=== PATIENT | male | born 1985 | race Caucasian/White ===

== ENCOUNTER 2019-02-11 08:08 | Inpatient (IN) | payer MEDICAID, OTHER ==
[~2019-02-11] VITALS: Ht 170.2 cm; Wt 90.7 kg
[~2019-02-11 08:08] MED LIST: PHEN100C3 PO
[2019-02-11 08:13] VITALS: BP 168/94
--- NOTE | 2019-02-11 08:17 | NUR ---
Patient ambulated to bed 9. RN evaluating patient at bedside.
--- NOTE | 2019-02-11 08:35 | NUR ---
C/O LLQ ABD PAIN 8/10 AND SHARP X1 DAY. PT ALSO REPORTS DYSURIA AND N/V X1 DAY WELL. PT STATES HE IS A [employer] AND HE THINKS MAYBE HE PULLED SOMETHING AT WORK. PT DENIES FEVER/DIARRHEA. LBM 02/10/19 & REGULAR. BOWEL SOUNDS PRESENT X4, ABD ROUND SOFT AND TENDER TO PALPATION ON LLQ. PT IN BED, SIDE RAIL UP X1, BED IN LOW POSITION.
--- NOTE | 2019-02-11 08:42 | NUR ---
DR. ANDERSON AT BEDSIDE
[2019-02-11] MEDS ORDERED: KETOROLAC 30 MG/ML VIAL IVP ONE (08:45)
[2019-02-11] MEDS ORDERED: NACL 0.9% 1,000 ML IV ONE (08:45)
--- NOTE | 2019-02-11 08:50 | NUR ---
pt left to CT
--- NOTE | 2019-02-11 09:10 | NUR ---
20 G INSERTED INTO PTS R AC, LABS DRAWN BEDSIDE AND PLACED FOR LAB PICKUP
[2019-02-11 09:51] LABS: BASOPHILS % (AUTO) 0.2 % (0.0-2.0); HEMATOCRIT 41.4 % (36-52); LYMPHOCYTES # (AUTO) 0.7 K/uL (2.0-11.5); LYMPHOCYTES % (AUTO) 5.9 % (20.5-51.1); MEAN CORPUSCULAR HEMOGLOBIN 31 pg (27-31); MEAN CORPUSCULAR HGB CONC 34 g/dL (33-37); MEAN CORPUSCULAR VOLUME 92.3 fL (80-94); MONOCYTES # (AUTO) 0.5 K/uL (0.8-1.0); MONOCYTES % (AUTO) 4.9 % (1.7-9.3); NEUTROPHILS # (AUTO) 9.8 K/uL (1.8-7.7); PLATELET COUNT (AUTO) 243 K/uL (140-450); RED BLOOD CELL COUNT(AUTO) 4.49 MIL/uL (4.20-6.10); RED CELL DISTRIBUTION WIDTH 13.9 % (11.6-13.7)
[2019-02-11 09:59] LABS: APPEARANCE,URINE HAZY (CLEAR); BILIRUBIN,URINE 1+ (NEGATIVE); BLOOD, URINE 3+ (NEGATIVE); COLOR,URINE YELLOW (YELLOW); LEUKOCYTE ESTERASE ,URINE NEGATIVE (NEGATIVE); NITRITE, URINE NEGATIVE (NEGATIVE); UGLUCOSE NEGATIVE (NEGATIVE)
[2019-02-11 10:03] LABS: RBC,URINE 11-20 (MOD) /HPF (0-5); WBC,URINE 0-5 /HPF (0-5)
--- NOTE | 2019-02-11 10:10 | NUR ---
PT REQUESTING TO GO OUTSIDE AND SMOKE. WILL CALL SECURITY TO HAVE THEM ESCORT HIM OUTSIDE DUE TO IV ACCESS
[2019-02-11 10:25] LABS: POTASSIUM 3.6 mmol/L (3.5-5.1)
[2019-02-11 10:26] LABS: ALBUMIN 3.9 g/dL (3.4-5.0); ANION GAP 15.1 (8-16); CARBON DIOXIDE 25.5 mmol/L (21-32); CREATININE 1.4 mg/dL (0.7-1.3); TOTAL BILIRUBIN 0.6 mg/dL (0.0-1.0)
--- NOTE | 2019-02-11 11:11 | NUR ---
PT RESTING IN BED, PAIN IS CONTROLLED AT THIS TIME.
[2019-02-11] MEDS ORDERED: HYDROcodone/APAP 7.5/325 MG 1 TAB PO PRN (11:15)
[2019-02-11] MEDS ORDERED: ACETAMINOPHEN 325 MG TAB PO PRN (11:15)
[2019-02-11] MEDS ORDERED: ONDANSETRON 4 MG/2 ML VIAL IM/IVP PRN (11:15)
[2019-02-11] MEDS ORDERED: DOCUSATE SODIUM 100 MG GELCAP PO PRN (11:15)
[2019-02-11] MEDS ORDERED: MORPHINE SULFATE 2 MG/ML SYR IVP PRN (11:15)
--- NOTE | 2019-02-11 11:39 | NUR ---
Patient will be admitted to care of . Admited to M/S. Will go to room 110A. Belongings list completed. Report to DONI TREVINO.
[2019-02-11 11:40] VITALS: BP 128/81
--- NOTE | 2019-02-11 11:40 | NUR ---
RECEIVED REPORT FROM ED NURSE ANGELICA. BROUGHT IN VIA WHEELCHAIR, AMBULATED TO [facility] BED WITH STEADY GAIT. PT AAOX4, CALM AND COOPERATIVE. RESPIRATIONS EVEN AND UNLABORED ON RA, NO C/O PAIN AT THIS TIME. IV ON RT AC 20 GA ON SALINE LOCK, FLUSHING WITH NO RESISTANCE, DRESSING CLEAN, DRY AND INTACT. ABDOMEN SOFT, BS ACTIVE, LBM 02/10. SKIN IS INTACT, WARM TO TOUCH. NO EDEMA NOTED TO EXTREMITIES. REVIEWED POC WITH PT, PT VERBALIZED UNDERSTANDING. WILL CONTINUE TO MONITOR.
[2019-02-11] MEDS ORDERED: KETOROLAC 15 MG/ML VIAL IVP PRN (11:50)
[2019-02-11 11:58] LABS: PROTHROMBIN TIME 9.4 secs (10.8-13.4)
[2019-02-11 12:14] LABS: CHOL/HDL RATIO 4.4 (1-4.5); MAGNESIUM 1.9 mg/dL (1.8-2.4); PHOSPHORUS 2.5 mg/dL (2.5-4.9); THYROID STIMULATING HORMONE 0.91 uIU/mL (0.34-3.74)
[2019-02-11 12:15] LABS: BARBITURATE, URINE NEG. ng/ml (NEG <=200); BENZODIAZEPINE, URINE NEG. ng/mL (NEG <=200); CANNABINOID, URINE NEG. ng/mL (NEG <=50); COCAINE, URINE NEG. ng/mL (NEG <=300); OPIATE, URINE NEG. ng/mL (NEG <=2000); PHENCYCLIDINE SCREEN,URINE NEG. ng/mL (NEG <=25)
[2019-02-11] MEDS: NACL 0.9% 1,000 ML IV SCH ×3 (12:41→21:11)
[2019-02-11] MEDS: TAMSULOSIN 0.4 MG CAP PO SCH (12:41)
[2019-02-11] MEDS ORDERED: TAMSULOSIN 0.4 MG CAP ONE (12:49)
--- NOTE | 2019-02-11 13:40 | NUR ---
PT RESTING IN BED, LYING SUPINE. RESPIRATIONS EVEN AND UNLABORED ON RA.
[2019-02-11] MEDS ORDERED: NICOTINE TRANSD SYS 14 MG/24 HR PATCH TD SCH (14:00)
[2019-02-11 14:14] LABS: CKMB RELATIVE INDEX 0.2 (0.0-2.5); CREATINE KINASE MB 16.3 ng/mL (0-3.6)
[2019-02-11 16:00] VITALS: BP 132/84
--- NOTE | 2019-02-11 17:33 | NUR ---
PT C/O OF LEVEL 7/10 PAIN TO LEFT LOWER BACK. MEDICATED WITH TORADOL PER ORDER. WILL REASSESS WITHIN 1 HR.
--- NOTE | 2019-02-11 18:33 | NUR ---
PT STATES "I HAVE NO PAIN". RESPIRATIONS EVEN AND UNLABORED ON RA.
--- NOTE | 2019-02-11 19:00 | NUR ---
PT IS CONVERSATING WITH AT BEDSIDE. PT IS CALM AND HAS NO SIGNS OF PAIN OR DISTRESS AT THIS TIME.
--- NOTE | 2019-02-11 19:14 | NUR ---
ENDORSED PT TO LUMBER INSPECTOR NURSE FOR CONTINUITY OF CARE. PT HAS NO SIGNS OF DISTRESS.
--- NOTE | 2019-02-11 19:15 | NUR ---
RECEIVED BEDSIDE REPORT FROM DAY SHIFT NURSE. NO SOB OR ANY RESPIRATORY DISTRESS NOTED. SKIN INTACT, WARM AND DRY TO TOUCH. IV SITE ON LAC, 20G, PATENT, INTACT, AND ASYMPTOMATIC. POC REVIEWED WITH PT, PT VERBALIZED UNDERSTANDING. BOARD UPDATED. BED IN LOW POSITION, CALL LIGHT WITHIN REACH. WILL CONTINUE TO MONITOR.
--- NOTE | 2019-02-11 21:20 | NUR ---
PT SLEEPING IN BED. NO ACUTE DISTRESS NOTED. WILL CONTINUE TO MONITOR.
--- NOTE | 2019-02-11 23:47 | NUR ---
PT SLEEPING. BREATHING EVEN AND UNLABORED. BED IN LOW POSITION. CALL LIGHT WITHIN REACH.
[2019-02-12] VITALS: BP 118/66
--- NOTE | 2019-02-12 00:22 | NUR ---
VS CHECKED, WITHIN NORMAL RANGE EXCEPT ABD PAIN 7/10, GIVEN MORPHINE MD ORDERED. WILL CONTINUE TO MONITOR.
--- NOTE | 2019-02-12 02:30 | NUR ---
PT AWAKE, LYING ON BED. BREATHING EVEN AND UNLABORED. DENIES PAIN. WILL CONTINUE TO MONITOR.
--- NOTE | 2019-02-12 04:29 | NUR ---
PT SLEEPING IN BED. NO ACUTE DISTRESS NOTED AT THIS TIME. WILL CONTINUE TO MONITOR.
--- NOTE | 2019-02-12 06:05 | NUR ---
PT SLEEPING IN BED. NO ACUTE DISTRESS NOTED.
[2019-02-12 06:17] LABS: T4 (THYROXINE) 5.5 ug/dL (4.5-12.0)
[2019-02-12 06:17] LABS: HEPATITIS A ANTIBODY IGM Negative (Negative); HEPATITIS B CORE AB TOTAL Negative (Negative); HEPATITIS B SURFACE ANTIBODY Non Reactive (.); HEPATITIS B SURFACE ANTIGEN Negative (Negative)
--- NOTE | 2019-02-12 07:15 | NUR ---
ENDORSED PT TO DAY SHIFT NURSE. PT IN STABLE CONDITION.
--- NOTE | 2019-02-12 07:20 | NUR ---
RECEIVED PT FROM RESERVATION CLERK NURSE, PT IS AWAKE AND LYING ON THE BED WITH SIDE RAILS AND CALL LIGHT WITHIN REACH, IV LINE ON THE RT AC G. 20 WITH NS INFUSING AT 130ML/HR, INTACT, PT DENIES PAIN AND NO SIGN OF DISTRESS NOTED AND WILL MONITOR PT.
[2019-02-12 07:34] LABS: BASOPHILS % (AUTO) 0.2 % (0.0-2.0); EOSINOPHILS # (AUTO) 0.1 K/uL (0-0.4); EOSINOPHILS % (AUTO) 1.2 % (0.0-4.0); HEMATOCRIT 37.5 % (36-52); HEMOGLOBIN 12.7 g/dL (12.0-18.0); LYMPHOCYTES # (AUTO) 1.6 K/uL (2.0-11.5); LYMPHOCYTES % (AUTO) 20.4 % (20.5-51.1); MEAN CORPUSCULAR HEMOGLOBIN 31 pg (27-31); MEAN CORPUSCULAR HGB CONC 34 g/dL (33-37); MEAN CORPUSCULAR VOLUME 91.6 fL (80-94); MONOCYTES # (AUTO) 0.9 K/uL (0.8-1.0); MONOCYTES % (AUTO) 11.3 % (1.7-9.3); NEUTROPHILS # (AUTO) 5.2 K/uL (1.8-7.7); NEUTROPHILS % (AUTO) 66.9 % (42.2-75.2); PLATELET COUNT (AUTO) 201 K/uL (140-450); RED BLOOD CELL COUNT(AUTO) 4.09 MIL/uL (4.20-6.10); RED CELL DISTRIBUTION WIDTH 13.5 % (11.6-13.7); WHITE BLOOD COUNT (AUTO) 7.7 K/uL (4.8-10.8)
[2019-02-12 08:00] VITALS: BP 110/81
[2019-02-12 08:00] LABS: ANION GAP 11.3 (8-16); POTASSIUM 3.3 mmol/L (3.5-5.1)
[2019-02-12 08:08] LABS: PHOSPHORUS 2.7 mg/dL (2.5-4.9)
[2019-02-12 08:15] LABS: MAGNESIUM 1.9 mg/dL (1.8-2.4)
--- NOTE | 2019-02-12 08:26 | NUR ---
PATIENT HAS BEEN SCREENED AND CATEGORIZED LOW NUTRITION RISK. PATIENT WILL BE SEEN WITHIN 7 DAYS OF ADMISSION. 02/17/[address]
[2019-02-12] MEDS ORDERED: TAMSULOSIN 0.4 MG CAP PO SCH (08:30)
[2019-02-12] MEDS ORDERED: POTASSIUM CHLORIDE 10 MEQ TABER PO SCH (09:00)
[2019-02-12] MEDS ORDERED: NICOTINE TRANSD SYS 14 MG/24 HR PATCH TD SCH (09:00)
[2019-02-12] MEDS: TAMSULOSIN 0.4 MG CAP PO SCH (09:46)
--- NOTE | 2019-02-12 09:48 | NUR ---
PT IS AWAKE AND LYING ON THE BED, ORAL AND PATCH MEDICATIONS WERE GIVEN TO PT AND PT TOLERATED IT. WILL MONITOR PT.
--- NOTE | 2019-02-12 11:15 | NUR ---
CONTACTED PATIENT'S PCP DR. CASA NUÑEZ AT [phone], SPOKE TO AMY. SHE PROVIDED ME WITH FEB 20, 2019 AT 1045 AM. WILL PROVIDE PATIENT WITH THE APPOINTMENT COPY.
--- NOTE | 2019-02-12 12:05 | NUR ---
DISCHARGED PT TO HOME, ACCOMPANIED BY , DISCHARGE TEACHINGS AND INSTRUCTIONS WERE GIVEN AND VERBALIZED UNDERSTANDING. IV LINE AND ARM BAND REMOVED. PT IS STABLE AT THIS TIME. Addendum: 02/12/19 at 1939 by Urszula Ruiz RN DISCHARGED TIME FOR THE ABOVE NOTE IS 1405H.
[2019-02-12] MEDS: NACL 0.9% 1,000 ML IV SCH (12:15)
--- NOTE | 2019-02-12 13:54 | NUR ---
PT WAS GIVEN IV ROCEPHIN NOW VIA PIGGYBACK.
[2019-02-12] MEDS ORDERED: CEPH250C16 PO (13:58)
[2019-02-12] MEDS ORDERED: TAMS0.4C96 PO (13:59)
[2019-02-12] MEDS ORDERED: IBUP-2213 PO (13:59)
== END 2019-02-12 14:45 | disposition home or self-care (01) | DRG 465 ==
LOC: MED 08:08 → MTU 11:13
PROVIDERS: ADMIT Family Medicine; ATTEND Family Medicine
DX: N13.2 Hydronephrosis with renal and ureteral calculous obstruction (principal); N17.0 Acute kidney failure with tubular necrosis; M62.82 Rhabdomyolysis; I10 Essential (primary) hypertension; D72.829 Elevated white blood cell count, unspecified; K44.9 Diaphragmatic hernia without obstruction or gangrene; F43.9 Reaction to severe stress, unspecified; E87.6 Hypokalemia; Z86.73 Personal history of transient ischemic attack (TIA), and cerebral infarction without residual deficits
CPT/HCPCS: 36415; 71045; 76700; 80048; 80053; 80305; 81001; 82140; 82150; 82550; 82553; 83036; 83605; 83615; 83690; 83735; 83880; 84100; 84436; 84443; 84484; 85025; 85610; 85730; 86704; 86706; 86708; 86709; 86803; 87040; 87081; 87086; 87340; 93005; 96361; 96374; 99285; J0696; J1885; J2270; J7030; J7060; Q0092

== ENCOUNTER 2019-07-16 19:56 | Emergency (ER) | payer OTHER ==
[~2019-07-16] VITALS: Ht 175.3 cm; Wt 99.8 kg
[~2019-07-16 19:56] MED LIST changes: +CEPH250C16 PO; +IBUP-2213 PO; -PHEN100C3 PO; +TAMS0.4C96 PO
[2019-07-16 20:10] VITALS: BP 132/72
--- NOTE | 2019-07-16 20:15 | NUR ---
TO LOBBY A/W BED, AMBULATORY
--- NOTE | 2019-07-16 23:14 | NUR ---
PATIENT LEFT WITHOUT BEING SEEN BY DR. ANDERSON. NO FURTHER CARE PROVIDED FOR PATIENT.
== END 2019-07-16 23:14 | disposition left against medical advice (07) ==
LOC: MED 19:56
DX: R63.0 Anorexia (principal); Z53.21 Procedure and treatment not carried out due to patient leaving prior to being seen by health care provider

== ENCOUNTER 2020-02-09 22:10 | Emergency (ER) | payer OTHER ==
[~2020-02-09] VITALS: Ht 175.3 cm; Wt 83.9 kg
[2020-02-09 22:20] VITALS: BP 113/71
[2020-02-10] VITALS: BP 113/71
== END 2020-02-10 | disposition home or self-care (01) ==
LOC: MED 22:10
DX: R43.8 Other disturbances of smell and taste (principal); F17.210 Nicotine dependence, cigarettes, uncomplicated; J45.909 Unspecified asthma, uncomplicated; I63.9 Cerebral infarction, unspecified; R56.9 Unspecified convulsions; Z20.828 Contact with and (suspected) exposure to other viral communicable diseases; Z79.899 Other long term (current) drug therapy
CPT/HCPCS: 99283; U0003

== ENCOUNTER 2023-03-01 10:59 | Day surgery (SDC) | payer OTHER ==
[~2023-03-01] VITALS: Ht 175.3 cm; Wt 89.8 kg
[~2023-03-01 10:59] MED LIST changes: -CEPH250C16 PO; +FERR325E14 PO; -IBUP-2213 PO; +PANT40EC PO; -TAMS0.4C96 PO
== END 2023-03-01 13:40 | disposition home or self-care (01) ==
LOC: MDS 10:59 → MMU 11:01 → MDS 13:40
PROVIDERS: ATTEND Internal Medicine Gastroenterology
DX: K92.2 Gastrointestinal hemorrhage, unspecified (principal); Z53.8 Procedure and treatment not carried out for other reasons

== ENCOUNTER 2023-07-28 22:20 | Emergency (ER) | payer OTHER ==
[~2023-07-28] VITALS: Ht 170.2 cm; Wt 86.2 kg
[2023-07-28 23:09] VITALS: BP 112/56; PULSE 91; RESP 18; TEMP 97.2; O2SAT 100
[2023-07-29 01:37] LABS: BASOPHILS # (AUTO) 0.1 K/uL (0.00-0.22); BASOPHILS % (AUTO) 1.2 % (0.0-2.0); EOSINOPHILS # (AUTO) 0.2 K/uL (0-0.4); EOSINOPHILS % (AUTO) 2.2 % (0.0-4.0); HEMATOCRIT 24.1 % (36-52); HEMOGLOBIN 7.9 g/dL (12.0-18.0); LYMPHOCYTES # (AUTO) 2.7 K/uL (2.0-11.5); LYMPHOCYTES % (AUTO) 33.6 % (20.5-51.1); MEAN CORPUSCULAR HEMOGLOBIN 24 pg (27-31); MEAN CORPUSCULAR HGB CONC 33 g/dL (33-37); MEAN CORPUSCULAR VOLUME 72.1 fL (80-94); MONOCYTES # (AUTO) 0.7 K/uL (0.8-1.0); MONOCYTES % (AUTO) 8.9 % (1.7-9.3); NEUTROPHILS # (AUTO) 4.3 K/uL (1.8-7.7); NEUTROPHILS % (AUTO) 54.1 % (42.2-75.2); PLATELET COUNT (AUTO) 277 K/uL (140-450); RED BLOOD CELL COUNT(AUTO) 3.34 MIL/uL (4.20-6.10); RED CELL DISTRIBUTION WIDTH 27.5 % (11.6-13.7); WHITE BLOOD COUNT (AUTO) 7.9 K/uL (4.8-10.8)
[2023-07-29 01:47] LABS: ANION GAP 12.1 (8-16); CALCIUM 8.3 mg/dL (8.5-10.1); CARBON DIOXIDE 28.8 mmol/L (21-32); CREATININE 1.1 mg/dL (0.6-1.3); POTASSIUM 3.9 mmol/L (3.5-5.1)
[2023-07-29 01:53] LABS: ALBUMIN 3.1 g/dL (3.4-5.0); TOTAL BILIRUBIN 0.1 mg/dL (0.0-1.0); TOTAL PROTEIN, SERUM 7.5 g/dL (6.4-8.2)
[2023-07-29 02:02] LABS: APPEARANCE,URINE CLEAR (CLEAR); BILIRUBIN,URINE NEGATIVE (NEGATIVE); BLOOD, URINE NEGATIVE (NEGATIVE); COLOR,URINE YELLOW (YELLOW); LEUKOCYTE ESTERASE ,URINE NEGATIVE (NEGATIVE); NITRITE, URINE NEGATIVE (NEGATIVE); PROTEIN,URINE NEGATIVE (NEGATIVE); UGLUCOSE NEGATIVE (NEGATIVE); UROBILINOGEN,URINE 0.2 EU/dL (0.2 - 1)
[2023-07-29 02:21] LABS: AMPHETAMINE, URINE POSITIVE ng/ml (NEG <=1000); BARBITURATE, URINE NEGATIVE ng/ml (NEG <=200); BENZODIAZEPINE, URINE NEGATIVE ng/mL (NEG <=200); CANNABINOID, URINE NEGATIVE ng/mL (NEG <=50); COCAINE, URINE NEGATIVE ng/mL (NEG <=300); OPIATE, URINE NEGATIVE ng/mL (NEG <=2000); PHENCYCLIDINE SCREEN,URINE NEGATIVE ng/mL (NEG <=25)
[2023-07-29 02:40] VITALS: BP 115/64; PULSE 86; RESP 17; TEMP 97.3; O2SAT 100
== END 2023-07-29 02:40 | disposition home or self-care (01) ==
LOC: MED 22:20
DX: R53.1 Weakness (principal); F15.129 Other stimulant abuse with intoxication, unspecified; J45.909 Unspecified asthma, uncomplicated; F17.210 Nicotine dependence, cigarettes, uncomplicated; F12.90 Cannabis use, unspecified, uncomplicated; Z86.73 Personal history of transient ischemic attack (TIA), and cerebral infarction without residual deficits; Z72.89 Other problems related to lifestyle
CPT/HCPCS: 36415; 71045; 80048; 80076; 80305; 81003; 83605; 85025; 86886; 86900; 86901; 87040; 87086; 93005; 99285

== ENCOUNTER 2024-01-26 02:25 | Emergency (ER) | payer OTHER ==
[~2024-01-26] VITALS: Ht 175.3 cm; Wt 79.4 kg
[2024-01-26 02:30] VITALS: BP 134/90; PULSE 68; RESP 17; TEMP 97.3; O2SAT 99
[2024-01-26 06:35] LABS: BASOPHILS # (AUTO) 0.1 K/uL (0.00-0.22); BASOPHILS % (AUTO) 0.9 % (0.0-2.0); EOSINOPHILS # (AUTO) 0.2 K/uL (0-0.4); EOSINOPHILS % (AUTO) 3.6 % (0.0-4.0); HEMATOCRIT 28.6 % (36-52); HEMOGLOBIN 8.9 g/dL (12.0-18.0); LYMPHOCYTES # (AUTO) 1.9 K/uL (2.0-11.5); LYMPHOCYTES % (AUTO) 31.8 % (20.5-51.1); MEAN CORPUSCULAR HEMOGLOBIN 22 pg (27-31); MEAN CORPUSCULAR HGB CONC 31 g/dL (33-37); MEAN CORPUSCULAR VOLUME 69.7 fL (80-94); MONOCYTES # (AUTO) 0.7 K/uL (0.8-1.0); MONOCYTES % (AUTO) 11.9 % (1.7-9.3); NEUTROPHILS # (AUTO) 3.1 K/uL (1.8-7.7); NEUTROPHILS % (AUTO) 51.8 % (42.2-75.2); PLATELET COUNT (AUTO) 380 K/uL (140-450); RED CELL DISTRIBUTION WIDTH 23.3 % (11.6-13.7); WHITE BLOOD COUNT (AUTO) 6.1 K/uL (4.8-10.8)
[2024-01-26 06:43] LABS: ANION GAP 12.5 (8-16); CALCIUM 8.9 mg/dL (8.5-10.1); CARBON DIOXIDE 26.5 mmol/L (21-32); CREATININE 0.9 mg/dL (0.6-1.3)
[2024-01-26 07:14] VITALS: BP 140/71; PULSE 78; RESP 18; TEMP 97.3; O2SAT 99
== END 2024-01-26 07:14 | disposition home or self-care (01) ==
LOC: MED 02:25
DX: R07.89 Other chest pain (principal); R06.02 Shortness of breath; R03.0 Elevated blood-pressure reading, without diagnosis of hypertension; J45.909 Unspecified asthma, uncomplicated; Z86.73 Personal history of transient ischemic attack (TIA), and cerebral infarction without residual deficits; Z86.69 Personal history of other diseases of the nervous system and sense organs; F15.10 Other stimulant abuse, uncomplicated; Z79.899 Other long term (current) drug therapy
CPT/HCPCS: 36415; 71045; 80048; 84484; 85025; 93005; 99285